=== PATIENT | female | born 1955 | race Caucasian/White ===

== ENCOUNTER 2017-06-14 14:17 | Outpatient (CLI) | payer BC | END 2017-06-14 14:18 | disposition home or self-care (01) | LOC: BICMAMMO 14:17 | PROVIDERS: ATTEND Family Medicine | DX: Z12.31 Encounter for screening mammogram for malignant neoplasm of breast (principal) | CPT/HCPCS: 77063; 77067 ==

== ENCOUNTER 2018-06-15 08:39 | Outpatient (CLI) | payer BC | END 2018-06-15 08:40 | disposition home or self-care (01) | LOC: BICMAMMO 08:39 | PROVIDERS: ATTEND Family Medicine | DX: Z12.31 Encounter for screening mammogram for malignant neoplasm of breast (principal); R92.1 Mammographic calcification found on diagnostic imaging of breast | CPT/HCPCS: 77063; 77067 ==

== ENCOUNTER 2018-10-25 07:51 | Day surgery (SDC) | payer BC ==
--- NOTE | 2018-10-25 11:45 | OP ---
DATE OF PROCEDURE: 10/25/2018 PROCEDURE PERFORMED: Colonoscopy with polypectomy. INDICATION FOR PROCEDURE: Screening for malignant neoplasm of the colon (average risk), family history of colonic polyps (sister with low-grade polyps). DESCRIPTION OF PROCEDURE: After the risks and benefits of the procedure were explained to the patient including risks of bleeding, infection, perforation, reactions to anesthesia, aspiration and/or pain, informed consent was obtained. The patient was then taken to the endoscopy suite, where deep sedation was administered via propofol and anesthesia support. Once adequate sedation was achieved, a digital rectal examination was performed followed by introduction of the standard colonoscope, which was then advanced to the terminal ileum with some difficulty requiring manual abdominal pressure to facilitate passage of the scope. The quality of the prep was excellent. The patient tolerated the procedure well with no immediate perioperative complication. Upon conclusion of the procedure, all equipment was removed from the patient, and she was transferred to Day Stay in satisfactory condition. FINDINGS: Digital rectal exam, normal external hemorrhoids were seen on external examination as well as perianal skin tags. COLON FINDINGS: Normal-appearing mucosa was seen in the terminal ileum as well as at the ileocecal valve and appendiceal orifice. A 3 to 4 mm sessile polyp was seen adjacent to the appendiceal orifice and completely removed with snare cautery polypectomy. It was retrieved and placed in a specimen jar for evaluation. Normal-appearing mucosa was then seen in the ascending and transverse colons. A 3 mm polyp was seen in the descending colon and completely removed with snare cautery polypectomy. It was retrieved and placed in a specimen jar for evaluation. Normal-appearing mucosa was then seen in the sigmoid colon. A 2 to 3 mm polyp was seen in the rectum and completely removed with Jumbo biopsy forceps. It was retrieved and placed in a specimen jar for evaluation as well. Normal-appearing mucosa was seen on rectal retroflexion. IMPRESSION: 1. A 3 to 4 mm cecal polyp, status post snare cautery polypectomy. 2. A 3 mm descending colon polyp, status post snare cautery polypectomy. 3. A 2 to 3 mm polyp, status post Jumbo biopsy forceps. 4. External hemorrhoids. RECOMMENDATIONS: 1. We will follow up on the biopsy results with repeat colonoscopy interval depending on pathology report. 2. Would recommend a higher fiber diet given the presence of external hemorrhoids. 3. Follow up in the GI clinic as needed. Job ID: [id number]
[2018-10-25] MEDS ORDERED: PROPOFOL 200 MG/20 ML VIAL ONE (12:28)
== END 2018-10-25 11:37 | disposition home or self-care (01) ==
LOC: SDC 07:51
PROVIDERS: ATTEND Internal Medicine
PROC: 0DBP8ZX Excision of Rectum, Via Natural or Artificial Opening Endoscopic, Diagnostic (ICD-10-PCS; principal; 2018-10-25)
PROC: 0DBM8ZX Excision of Descending Colon, Via Natural or Artificial Opening Endoscopic, Diagnostic (ICD-10-PCS; principal; 2018-10-25)
PROC: 0DBH8ZX Excision of Cecum, Via Natural or Artificial Opening Endoscopic, Diagnostic (ICD-10-PCS; principal; 2018-10-25)
DX: Z12.11 Encounter for screening for malignant neoplasm of colon (principal); K62.1 Rectal polyp; K63.5 Polyp of colon; K64.4 Residual hemorrhoidal skin tags; J45.909 Unspecified asthma, uncomplicated; E11.9 Type 2 diabetes mellitus without complications; E78.00 Pure hypercholesterolemia, unspecified; I10 Essential (primary) hypertension; Z87.891 Personal history of nicotine dependence; Z83.71 Family history of colonic polyps; Z79.84 Long term (current) use of oral hypoglycemic drugs; Z79.899 Other long term (current) drug therapy; Z98.890 Other specified postprocedural states
CPT/HCPCS: 88305; J2704

== ENCOUNTER 2019-11-09 11:47 | Outpatient (CLI) | payer OTHER ==
--- NOTE | 2019-11-09 12:34 | MMO ---
Bilateral MAMMO Bilat Screen [facility]. CLINICAL HISTORY: Patient is 63 years old and is seen for screening. The patient has no family history of breast cancer. The patient has no personal history of cancer. VIEWS: The views performed were: bilateral craniocaudal with tomosynthesis and bilateral mediolateral oblique with tomosynthesis. FILMS COMPARED: The present examination has been compared to prior imaging studies performed at [facility] on 05/28/2016, 06/14/2017 and 06/15/2018, and at [facility] on 07/06/2012. This study has been interpreted with the assistance of computer-aided detection. MAMMOGRAM FINDINGS: There are scattered fibroglandular densities. Finding 1: There are stable benign appearing calcifications seen in both breasts. Finding 2: There are stable benign appearing densities seen in both breasts. There are no suspicious masses, suspicious calcifications, or new areas of architectural distortion. IMPRESSION: THERE IS NO MAMMOGRAPHIC EVIDENCE OF MALIGNANCY. A ROUTINE FOLLOW-UP MAMMOGRAM IN 1 YEAR IS RECOMMENDED. THE RESULTS OF THIS EXAM WERE SENT TO THE PATIENT. ACR BI-RADS Category 2 - Benign finding MAMMOGRAPHY NOTE: 1. A negative mammogram report should not delay a biopsy if a dominant of clinically suspicious mass is present. 2. Approximately 10% to 15% of breast cancers are not detected by mammography. 3. Adenosis and dense breasts may obscure an underlying neoplasm. Reported by: BARRETT AMBRIZ MD Electonically Signed: [id number]
== END 2019-11-09 11:48 | disposition home or self-care (01) ==
LOC: BICMAMMO 11:47
PROVIDERS: ATTEND Family Medicine
DX: Z12.31 Encounter for screening mammogram for malignant neoplasm of breast (principal)
CPT/HCPCS: 77063; 77067